=== PATIENT | female | born 2000 | race African-American/Black ===

== ENCOUNTER 2022-01-14 20:26 | Emergency (ER) | payer OTHER ==
--- NOTE | 2022-01-14 21:07 | EDPHYS ---
Physician Documentation [facility] Name: Payal Cook Age: 21 yrs Sex: Female : 2000 Arrival Date: 01/14/2022 Time: 20:29 Bed 12 Private MD: ED Physician Akira Pierce HPI: 01/14 21:05 This 21 yrs old Black Female presents to ER via Unassigned with complaints of Ear Pain. rn 21:05 The patient presents with pain, mild. The complaints affect the left ear. Onset: The rn symptoms/episode began/occurred 3 day(s) ago. Modifying factors: The symptoms are alleviated by nothing, the symptoms are aggravated by nothing. Associated signs and symptoms: Pertinent negatives: fever, rhinorrhea, shortness of breath, sore throat. Severity of symptoms: At their worst the symptoms were mild in the emergency department the symptoms are unchanged. The patient has experienced similar episodes in the past. Reports left ear pain, OTC ear drops not helping, no fever, no trauma, for 3 days, has had ear problems in past, no cough/congestion. NO drainage. Denies dental pain or trauma. . 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 - Social history:: Smoking status: Patient denies any tobacco usage or history of. Patient/guardian denies using alcohol. - Family history:: not pertinent. - Hospitalizations: : No recent hospitalization is reported. ROS: 21:05 Constitutional: Negative for fever, chills, and weight loss, Eyes: Negative for injury, rn pain, redness, and discharge, ENT: + left ear pain Neck: Negative for injury, pain, and swelling, Skin: Negative for injury, rash, and discoloration, Neuro: Negative for weakness, numbness, tingling, and seizure. Exam: 21:05 Constitutional: This is a well developed, well nourished patient who is awake, alert, rn and in no acute distress. Head/Face: Normocephalic, atraumatic. Eyes: Pupils equal round and reactive to light, extra-ocular motions intact. Lids and lashes normal. Conjunctiva and sclera are non-icteric and not injected. Cornea within normal limits. Periorbital areas with no swelling, redness, or edema. ENT: Left TM with mild inflammation, + moderate wax, no canal swelling or drainage, no perforation. Right TM and canal normal. Normal dentition without obvious source of pain or swelling. Neck: Trachea midline, no thyromegaly or masses palpated, and no cervical lymphadenopathy. Supple, full range of motion without nuchal rigidity, or vertebral point tenderness. No Meningismus. Neuro: Awake and alert, GCS 15, oriented to person, place, time, and situation. Cranial nerves II-XII grossly intact. Motor strength 5/5 in all extremities. Sensory grossly intact. Cerebellar exam normal. Normal gait. Vital Signs: 21:16 BP 126 / 77; Pulse 86; Resp 18; Temp 98.6(O); Pulse Ox 100% on R/A; Weight 85.73 kg; ld1 Height 5 ft. 6 in. (167.64 cm); Pain 3/10; 21:16 Body Mass Index 30.51 (85.73 kg, 167.64 cm) ld1 MDM: 20:53 Patient medically screened. rn 21:07 Differential diagnosis: otitis media, otitis externa, acute otalgia, cerumen impaction, rn serotympanum. Data reviewed: vital signs, nurses notes, and as a result, I will discharge patient. Counseling: I had a detailed discussion with the patient and/or guardian regarding: the historical points, exam findings, and any diagnostic results supporting the discharge/admit diagnosis, the need for outpatient follow up, to return to the emergency department if symptoms worsen or persist or if there are any questions or concerns that arise at home. Special discussion: I discussed with the patient/guardian in detail that at this point there is no indication for admission to the hospital. It is understood, however, that if the symptoms persist or worsen the patient needs to return immediately for re-evaluation. Administered Medications: No medications were administered Disposition Summary: 01/14/22 21:07 Discharge Ordered Location: Home rn Problem: new rn Symptoms: are unchanged rn Condition: Stable rn Diagnosis - Otitis media, unspecified, left ear rn Followup: rn - With: Private Physician - When: As needed - Reason: Recheck today's complaints, Re-evaluation by your physician Discharge Instructions: - Discharge Summary Sheet rn - Otitis Media, Adult rn Forms: - Medication Reconciliation Form rn - Thank You Letter rn - Antibiotic rn transition - Prescription Opioid Use rn Prescriptions: - Augmentin 875-125 mg Oral Tablet - take 1 tablet by ORAL route every 12 hours for 10 days; 20 tablet; Refills: 0, rn Product Selection Permitted Signatures: Akira Pierce MD MD rn Dibbern, Lauren, RN RN ld1 Corrections: (The following items were deleted from the chart) 21:06 21:05 Reports left ear pain, OTC ear drops not helping, no fever, no trauma, for 3 rn days, has had ear problems in past, no cough/congestion. NO drainage. . rn 21:07 21:05 Constitutional: This is a well developed, well nourished patient who is awake, rn alert, and in no acute distress. Head/Face: Normocephalic, atraumatic. Eyes: Pupils equal round and reactive to light, extra-ocular motions intact. Lids and lashes normal. Conjunctiva and sclera are non-icteric and not injected. Cornea within normal limits. Periorbital areas with no swelling, redness, or edema. ENT: Left TM with mild inflammation, + moderate wax, no canal swelling or drainage, no perforation. Right TM and canal normal. Normal dentition without obvious source of pain or swelling. Neck: Trachea midline, no thyromegaly or masses palpated, and no cervical lymphadenopathy. Supple, full range of motion without nuchal rigidity, or vertebral point tenderness. No Meningismus. rn
--- NOTE | 2022-01-14 21:20 | ER ---
Nurse's Notes [facility] Name: Payal Cook Age: 21 yrs Sex: Female : 2000 Arrival Date: 01/14/2022 Time: 20:29 Bed 12 Private MD: Diagnosis: Otitis media, unspecified, left ear Presentation: 01/14 21:16 Chief complaint: Patient states: CIERRA ear pain. Coronavirus screen: At this time, the ld1 client does not indicate any symptoms associated with coronavirus-19. Ebola Screen: No symptoms or risks identified at this time. Initial Sepsis Screen: Does the patient meet any 2 criteria? No. Patient's initial sepsis screen is negative. Does the patient have a suspected source of infection? No. Patient's initial sepsis screen is negative. Risk Assessment: Do you want to hurt yourself or someone else? Patient reports no desire to harm self or others. Onset of symptoms was January 14, 2022. 21:16 Method Of Arrival: Ambulatory ld1 21:16 Acuity: ALEX 4 ld1 Triage Assessment: 21:17 General: Appears in no apparent distress. comfortable, Behavior is calm, cooperative, ld1 appropriate for age. Pain: Complains of pain in right ear and left ear Pain does not radiate. Pain currently is 3 out of 10 on a pain scale. Pain began 2-3 days ago. Is intermittent. EENT: Ear canal clear on right ear and left ear. Neuro: Level of Consciousness is awake, alert, obeys commands, Oriented to person, place, time, situation, Appropriate for age. Cardiovascular: Capillary refill < 3 seconds Patient's skin is warm and dry. Respiratory: Airway is patent Respiratory effort is even, unlabored. GI: Abdomen is flat, non-distended. : No signs and/or symptoms were reported regarding the genitourinary system. Derm: No signs and/or symptoms reported regarding the dermatologic system. Musculoskeletal: No signs and/or symptoms reported regarding the musculoskeletal system. 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 - Social history:: Smoking status: Patient denies any tobacco usage or history of. Patient/guardian denies using alcohol. - Family history:: not pertinent. - Hospitalizations: : No recent hospitalization is reported. Screenin:18 Abuse screen: Denies threats or abuse. Denies injuries from another. Nutritional ld1 screening: No deficits noted. Tuberculosis screening: No symptoms or risk factors identified. Fall Risk None identified. Assessment: 21:18 Reassessment: see triage assessment. ld1 Vital Signs: 21:16 BP 126 / 77; Pulse 86; Resp 18; Temp 98.6(O); Pulse Ox 100% on R/A; Weight 85.73 kg; ld1 Height 5 ft. 6 in. (167.64 cm); Pain 3/10; 21:16 Body Mass Index 30.51 (85.73 kg, 167.64 cm) ld1 ED Course: 20:29 Patient arrived in ED. wagner 20:53 Alex Shaw PA is PHCP. cp 20:53 Akira Pierce MD is Attending Physician. cp 21:16 Jory Staley, HENRY is Primary Nurse. ld1 21:17 Triage completed. ld1 21:17 Arm band placed on right wrist. ld1 21:18 Patient has correct armband on for positive identification. Bed in low position. Call ld1 light in reach. Side rails up X2. Pulse ox on. NIBP on. Door closed. Noise minimized. 21:18 No provider procedures requiring assistance completed. Patient did not have IV access ld1 during this emergency room visit. Administered Medications: No medications were administered Outcome: 21:07 Discharge ordered by . rn 21:18 Discharged to home ambulatory. ld1 21:18 Condition: stable 21:18 Discharge instructions given to patient, Instructed on discharge instructions, follow up and referral plans. Demonstrated understanding of instructions, follow-up care. 21:19 Patient left the ED. ld1 Signatures: Stephy Higgins Roman, MD MD rn Page, Corey, PA PA cp Jory Staley, RN RN ld1
[2022-01-14 21:33] VITALS: BP 126/77; TEMP 98.6; O2SAT 100
== END 2022-01-14 21:19 | disposition home or self-care (01) ==
LOC: ER 20:26
DX: H66.92 Otitis media, unspecified, left ear (principal)
CPT/HCPCS: 99283